=== PATIENT | female | born 1980 | race Caucasian/White ===

== ENCOUNTER 2017-01-17 16:39 | Emergency (ER) | payer OTHER ==
[2017-01-17 16:52] VITALS: BP 123/81
--- NOTE | 2017-01-17 18:30 | UC ---
FLU HPI - HPI Summary HPI Summary: SORE THROAT, EAR ACHE, FEVER, CHILLS ONSET THIS MORNING. - History of Current Complaint Chief Complaint: UCGeneralIllness Stated Complaint: SORE THROAT,ACHY,FEVER Time Seen by Provider: 01/17/17 17:02 Hx Obtained From: Patient Hx Last Menstrual Period: LAST WEEK Onset/Duration: Sudden Onset, Lasting Hours, Still Present Severity Currently: Moderate Severity Initially: Moderate Associated Signs & Symptoms: Positive: Fever, F/C, Myalgia, Sore Throat Related Hx: Possible Flu/Infectious Exposure, Smoking - Allergy/Home Medications Allergies/Adverse Reactions: Allergies Allergy/AdvReac Type Severity Reaction Status Date / Time Metronidazole [From Flagyl] Allergy Hives Verified 01/17/17 16:52 Home Medications: Home Medications Amitriptyline TAB* [Elavil TAB*] 50 mg PO BEDTIME 01/17/17 [History Confirmed ] Bcp 1 tab PO DAILY 01/17/17 [History] Fluticasone NASAL SPRAY 50MCG* [Flonase NASAL SPRAY 50MCG*] 1 spray BOTH NARES DAILY 01/17/17 [History Confirmed 01/17/17] Magnesium Oxide (mg Supplement [Magox 400-] 400 mg PO BID 01/17/17 [History Confirmed 01/17/17] Meloxicam [Mobic] 15 mg PO DAILY 01/17/17 [History Confirmed 01/17/17] Mirtazapine TAB* [Remeron TAB*] 15 mg PO BEDTIME 01/17/17 [History Confirmed ] Topiramate [Topiramate ER 50 mg cap] 50 mg PO BID 01/17/17 [History Confirmed ] ValACYclovir (*) [Valtrex 500 mg (*)] 500 mg PO DAILY 01/17/17 [History Confirmed 01/17/17] PMH/Surg Hx/FS Hx/Imm Hx Previously Healthy: Yes - Surgical History Surgical History: Yes Surgery Procedure, Year, and Place: LEFT KNEE SX 2013. 2 RIGHT SHOULDER SX 2011 , 2012 - Family History Known Family History: Negative: Respiratory Disease - Social History Occupation: Disabled - CURRENTLY IN REHAB Lives: With Family Alcohol Use: None Substance Use Type: None Smoking Status (MU): Current Every Day Smoker Type: Cigarettes Amount Used/How Often: LESS THAN 1/2 PPD Length of Time of Smoking/Using Tobacco: 15 YRS. Have You Smoked in the Last Year: Yes Cessation Counseling: Patient Advised to Stop Review of Systems Constitutional: Fever, Chills, Fatigue Skin: Negative Eyes: Negative ENT: Sore Throat, Ear Ache Respiratory: Negative Cardiovascular: Negative Gastrointestinal: Negative Genitourinary: Negative Motor: Negative Neurovascular: Negative Musculoskeletal: Myalgia Neurological: Negative Psychological: Negative All Other Systems Reviewed And Are Negative: Yes Physical Exam Triage Information Reviewed: Yes Appearance: No Pain Distress, Well-Nourished, Ill-Appearing - MILDLY Vital Signs: Initial Vital Signs Temp 97.4 F 01/17/17 16:44 Pulse 84 01/17/17 16:44 Resp 16 01/17/17 16:44 BP 123/81 01/17/17 16:44 Pulse Ox 98 01/17/17 16:44 Vital Signs Reviewed: Yes Eye Exam: Normal ENT: Positive: Hearing grossly normal, Pharynx normal, Pharyngeal erythema, Nasal congestion, TMs normal Dental Exam: Normal Neck exam: Normal Neck: Positive: Supple, Nontender, No Lymphadenopathy Respiratory Exam: Normal Respiratory: Positive: Chest non-tender, Lungs clear, Normal breath sounds, No respiratory distress, No accessory muscle use Cardiovascular Exam: Normal Cardiovascular: Positive: RRR, No Murmur, Pulses Normal Abdominal Exam: Normal Musculoskeletal Exam: Normal Neurological Exam: Normal Psychological Exam: Normal Skin Exam: Normal Flu Course/Dx - Differential Dx/Diagnosis Differential Diagnosis/HQI/PQRI: Influenza, RSV, Upper Respiratory Infection Provider Diagnoses: PHARYNGITIS; VIRAL SYNDROME Discharge - Discharge Plan Condition: Stable Disposition: HOME Patient Education Materials: Pharyngitis (ED), Viral Syndrome (ED) Forms: *Work Release Referrals: [facility] [place] PHYSICIAN REFERRAL [Outside] Non Staff,Doctor [Primary Care Provider] -
== END 2017-01-17 18:35 | disposition home or self-care (01) ==
LOC: UCCORT 16:39
DX: J02.9 Acute pharyngitis, unspecified (principal); B34.9 Viral infection, unspecified; Z88.1 Allergy status to other antibiotic agents; F17.210 Nicotine dependence, cigarettes, uncomplicated
CPT/HCPCS: 87502; 87651; 99201; G0463

== ENCOUNTER 2018-06-29 19:21 | Emergency (ER) | payer OTHER ==
[2018-06-29 19:42] VITALS: BP 119/62
[2018-06-29] MEDS ORDERED: Ondansetron ODT TAB* 4 MG PO ONE (20:18)
--- NOTE | 2018-06-29 20:41 | ED ---
- HPI Summary HPI Summary: pt presents for evaluation of her nausea. she states she is approx 4 weeks . she denies any vaginal bleeding or abdominal pain. she has a routine appt for an ultrasound to evaluate the baby. she complains of tender breasts. - History of Current Complaint Chief Complaint: UCGeneralIllness Stated Complaint: 1 MONTH PREG. VOMITING NON STOP. Time Seen by Provider: 06/29/18 19:28 Hx Obtained From: Patient Onset/Duration: Started Weeks Ago Timing: Intermittent Severity: Mild Current Severity: Mild Pain Intensity: 0 - Assessment Hx Now: Yes - Allergies/Home Medications Allergies/Adverse Reactions: Allergies Allergy/AdvReac Type Severity Reaction Status Date / Time metronidazole [From Flagyl] Allergy Intermediate Hives Verified 06/29/18 19:43 PMH/Surg Hx/FS Hx/Imm Hx Previously Healthy: Yes - Surgical History Surgery Procedure, Year, and Place: LEFT KNEE SX 2013. 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 Have You Smoked in the Last Year: Yes Review of Systems Constitutional: Negative Eyes: Negative ENT: Negative Cardiovascular: Negative Respiratory: Negative Positive: Vomiting, Nausea. Negative: Abdominal Pain, Diarrhea Genitourinary: Negative Musculoskeletal: Negative Skin: Negative Neurological: Negative Psychological: Normal All Other Systems Reviewed And Are Negative: No Physical Exam - Physical Exam Triage Information Reviewed: Yes Vital Signs Reviewed: Yes Appearance: Positive: Well-Appearing, No Pain Distress, Well-Nourished Skin: Positive: Warm, Dry Eyes: Positive: Normal, EOMI, VINCENZO ENT: Positive: Normal ENT inspection, Hearing grossly normal, Pharynx normal Neck: Positive: Supple, Nontender Respiratory/Lung Sounds: Positive: Clear to Auscultation, Breath Sounds Present Cardiovascular: Positive: Normal, RRR Abdomen Description: Positive: Nontender, Soft, Other: - gravid abdomen Musculoskeletal: Positive: Normal Neurological: Positive: Normal, Sensory/Motor Intact, Alert, Oriented to Person Place, Time Psychiatric: Positive: Normal AVPU Assessment: Alert Diagnostics - Vital Signs Vital Signs Temp Pulse Resp BP Pulse Ox 06/29/18 19:40 98.8 F 85 15 119/62 98 - Laboratory Lab Results: Lab Results 06/29/18 Range/Units 20:19 POC Urine Color Yellow POC Urine Clarity Clear POC Urine pH 6.0 (5-9) POC Ur Specif [place] 1.020 (1.010-1.030) POC Urine Protein Negative (Negative) POC Ur Glucose (UA) Negative (Negative) POC Urine Ketones Negative (Negative) POC Urine Blood Negative (Negative) POC Urine Nitrite Negative (Negative) POC Urine Bilirubin Negative (Negative) POC Urine Urobilinogen 0.2 (Negative) POC U Leukocyte Esteras Negative (Negative) Lab Statement: Any lab studies that have been ordered have been reviewed, and results considered in the medical decision making process. Course/Dx - Course Course Of Treatment: pt given zofran. she is feeling better. her urine shows no evidence of uti. I am not concerned about an ectopic. will d/c with rx for zofran and give work excuse. - Diagnoses Provider Diagnoses: Nausea/vomiting in Discharge - Sign-Out/Discharge Documenting (check all that apply): Patient Departure All imaging exams completed and their final reports reviewed: No Studies - Discharge Plan Condition: Stable Disposition: HOME Prescriptions: Ondansetron ODT TAB* [Zofran 4 MG Odt TAB*] 4 mg PO Q8H PRN #30 tab.odt MDD 3 PRN Reason: Nausea Patient Education Materials: Nausea and Vomiting in (ED) Forms: *Work Release Referrals: No Primary Care Phys,NOPCP [Primary Care Provider] - [facility] [Provider Group] Additional Instructions: please keep your appt with your ob doctor. take the zofran for nausea/ vomiting. return if worse or any new symptoms. take your vitamins. - Billing Disposition and Condition Condition: STABLE Disposition: Home
== END 2018-06-29 20:45 | disposition home or self-care (01) ==
LOC: UCCORT 19:21
DX: O21.9 Vomiting of pregnancy, unspecified (principal); F17.210 Nicotine dependence, cigarettes, uncomplicated; Z3A.01 Less than 8 weeks gestation of pregnancy; Z88.1 Allergy status to other antibiotic agents
CPT/HCPCS: 81003; 99212; A9270-GY; G0463

== ENCOUNTER 2018-07-27 10:56 | Emergency (ER) | payer OTHER ==
[2018-07-27 11:16] VITALS: BP 107/79
[2018-07-27] MEDS ORDERED: Ondansetron ODT TAB* 4 MG PO ONE (11:56)
--- NOTE | 2018-07-27 12:08 | UC ---
Throat Pain/Nasal Brent HPI - HPI Summary HPI Summary: nausea is persistant, she is 11 weeks and provider gave Zofran PO instead of OTD and she is throwing them up. sore thraot, swollen glands and sinus pressure - History of Current Complaint Chief Complaint: UCGeneralIllness Stated Complaint: ST/EAR ACHE/NEAUSEA (PREG) Time Seen by Provider: 07/27/18 11:48 Hx Obtained From: Patient Hx Last Menstrual Period: 05/08/18 ?: No Onset/Duration: Sudden Onset, Lasting Days Severity: Moderate Pain Intensity: 0 Associated Signs & Symptoms: Positive: Dysphagia, Sinus Discomfort - Allergies/Home Medications Allergies/Adverse Reactions: Allergies Allergy/AdvReac Type Severity Reaction Status Date / Time metronidazole [From Flagyl] Allergy Intermediate Hives Verified 07/27/18 11:10 Home Medications: Home Medications Docusate CAP* [Colace Cap*] 100 mg PO DAILY 07/27/18 [History Confirmed 07/27/18 ] [id number]/Iron Fum/Folic/Docusate [ 19] 1 tab PO DAILY 07/27/18 [History Confirmed 07/27/18] Polyethylene Glycol 3350* [Miralax*] 17 gm PO DAILY 07/27/18 [History Confirmed 07/27/18] PMH/Surg Hx/FS Hx/Imm Hx Previously Healthy: Yes - Surgical History Surgical History: Yes Surgery Procedure, Year, and Place: LEFT KNEE SX 2013. 2 RIGHT SHOULDER SX 2011 , 2013. LEFT SHOULDER SX - Family History Known Family History: Negative: Respiratory Disease - Social History Alcohol Use: None Substance Use Type: None Smoking Status (MU): Light Every Day Tobacco Smoker Type: Cigarettes Amount Used/How Often: 1 cig daily Length of Time of Smoking/Using Tobacco: 15 YRS. Have You Smoked in the Last Year: Yes Review of Systems All Other Systems Reviewed And Are Negative: Yes Constitutional: Positive: Negative Skin: Positive: Negative Eyes: Positive: Negative ENT: Positive: Sore Throat, Ear Ache, Nasal Discharge Respiratory: Positive: Cough Cardiovascular: Positive: Negative Gastrointestinal: Positive: Negative Genitourinary: Positive: Negative Motor: Positive: Negative Neurovascular: Positive: Negative Musculoskeletal: Positive: Negative Neurological: Positive: Negative Psychological: Positive: Negative Is Patient Immunocompromised?: No Physical Exam Triage Information Reviewed: Yes Appearance: Well-Nourished, Ill-Appearing, Pain Distress Vital Signs: Initial Vital Signs Temp 97.8 F 07/27/18 11:11 Pulse 71 07/27/18 11:11 Resp 17 07/27/18 11:11 BP 107/79 07/27/18 11:11 Pulse Ox 99 07/27/18 11:11 Vital Signs Reviewed: Yes Eye Exam: Normal ENT: Positive: Pharyngeal erythema, TM bulging Dental Exam: Normal Neck: Positive: Enlarged Nodes @ - bilateral cervical Respiratory Exam: Normal Respiratory: Positive: Chest non-tender, Lungs clear, Normal breath sounds Cardiovascular Exam: Normal Cardiovascular: Positive: RRR, No Murmur, Pulses Normal Abdominal Exam: Normal Abdomen Description: Positive: Nontender, No Organomegaly, Soft Bowel Sounds: Positive: Present Musculoskeletal Exam: Normal Musculoskeletal: Positive: Strength Intact, ROM Intact, No Edema Neurological Exam: Normal Neurological: Positive: Alert Psychological Exam: Normal Skin Exam: Normal Throat Pain/Nasal Course/Dx - Course Course Of Treatment: hx obtained, exam performed ,meds reviewed, rapid strep positive, - Differential Dx/Diagnosis Differential Diagnosis/HQI/PQRI: Otitis Media, Pharyngitis, Sinusitis, URI Provider Diagnosis: Nausea, Strep pharyngitis Discharge - Sign-Out/Discharge Documenting (check all that apply): Patient Departure All imaging exams completed and their final reports reviewed: No Studies - Discharge Plan Condition: Stable Disposition: HOME Prescriptions: Amoxicillin PO (*) [Amoxicillin 875 MG (*)] 875 mg PO BID #20 tab Ondansetron ODT TAB* [Zofran 4 MG Odt TAB*] 4 mg PO Q8H PRN #6 tab.odt PRN Reason: Nausea Patient Education Materials: Strep Throat (DC) Referrals: Jonas ACOSTA,Clark Gustafson [Primary Care Provider] - Additional Instructions: 1. take the medication as prescribed. 2. Increase fluid intake and get plenty of rest 3. FOllow up as needed. - Billing Disposition and Condition Condition: STABLE Disposition: Home
== END 2018-07-27 12:17 | disposition home or self-care (01) ==
LOC: UCCORT 10:56
DX: O21.0 Mild hyperemesis gravidarum (principal); Z3A.11 11 weeks gestation of pregnancy; J02.0 Streptococcal pharyngitis; B95.0 Streptococcus, group A, as the cause of diseases classified elsewhere; O26.891 Other specified pregnancy related conditions, first trimester; O99.331 Smoking (tobacco) complicating pregnancy, first trimester; F17.210 Nicotine dependence, cigarettes, uncomplicated; Z88.1 Allergy status to other antibiotic agents
CPT/HCPCS: 87651; 99212; A9270-GY; G0463

== ENCOUNTER 2018-11-11 08:58 | Emergency (ER) | payer OTHER ==
[2018-11-11 09:22] VITALS: BP 102/66
[2018-11-11 09:34] LABS: Influenza A Molecular POSITIVE (Negative)
--- NOTE | 2018-11-11 09:52 | UC ---
Throat Pain/Nasal Brent HPI - HPI Summary HPI Summary: Pt is 2nd trimester presents with 24 hours body aches, fatigue, congestion. mild intermittent cough - not productive Tactile temp. No SOB. Good , active activity. No rash. no cp, abd pain. No n/v/d. pt's medications reviewed this visit - History of Current Complaint Chief Complaint: UCGeneralIllness Stated Complaint: SORE THROAT,CONGESTION Time Seen by Provider: 11/11/18 09:35 Hx Obtained From: Patient Hx Last Menstrual Period: 05/08/18 Onset/Duration: Sudden Onset Severity: Mild Pain Intensity: 4 Pain Scale Used: 0-10 Numeric - Allergies/Home Medications Allergies/Adverse Reactions: Allergies Allergy/AdvReac Type Severity Reaction Status Date / Time metronidazole [From Flagyl] Allergy Intermediate Hives Verified 11/11/18 09:18 Home Medications: Home Medications Ranitidine TAB (NF) [Zantac TAB (NF)] 300 mg PO DAILY 11/11/18 [History Confirmed 11/11/18] PMH/Surg Hx/FS Hx/Imm Hx Previously Healthy: Yes - Surgical History Surgical History: Yes Surgery Procedure, Year, and Place: LEFT KNEE SX 2013. 2 RIGHT SHOULDER SX 2011 , 2013. LEFT SHOULDER SX - Family History Known Family History: Negative: Respiratory Disease - Social History Occupation: Employed Full-time Lives: With Family Alcohol Use: None Substance Use Type: None Smoking Status (MU): Former Smoker Type: Cigarettes Amount Used/How Often: 1 cig daily Length of Time of Smoking/Using Tobacco: 15 YRS. Have You Smoked in the Last Year: Yes Review of Systems All Other Systems Reviewed And Are Negative: Yes Constitutional: Positive: Fever, Fatigue Eyes: Positive: Negative ENT: Positive: Negative Respiratory: Positive: Cough. Negative: Shortness Of Breath Cardiovascular: Positive: Negative Neurovascular: Positive: Negative Musculoskeletal: Positive: Negative Neurological: Positive: Negative Psychological: Positive: Negative Is Patient Immunocompromised?: No Physical Exam - Summary Physical Exam Summary: Vital Signs Reviewed: Yes A+Ox3, no distress Eyes: Conjunctiva Clear, VINCENZO. EOM intact and full ENT: Hearing grossly normal TM x 2 clear, turbinates inflammed and boggy, + PND mmoist, uvula midline, no exudate, no erythema Neck: Positive: Supple Respiratory: Positive: No respiratory distress, No accessory muscle use + CTA throughout no w/r, intermittent cough. speak in full, easy sentences Cardiovascular: RRR nl s1, s2 no m/r CBT <2 sec abd soft + BS nt/nd no guarding, no distension, gravid Musculoskeletal Exam: VILLAREAL x 4 without difficulty Strength Intact, ROM Intact Neurological: Positive: Alert, + sensation throughout Psychological: Positive: Normal Response To Family Skin: Positive: no rash, no ecchymosis Triage Information Reviewed: Yes Vital Signs: Initial Vital Signs Temp 98 F 11/11/18 09:18 Pulse 90 11/11/18 09:18 Resp 16 11/11/18 09:18 BP 102/66 11/11/18 09:18 Pulse Ox 98 11/11/18 09:18 Throat Pain/Nasal Course/Dx - Course Course Of Treatment: Pt presents with progressive congestion, body aches, and fatigue pt 20+ weeks VSS On exam, Pt with congestion and cough + influenza hydrate APAP rest humidified air Tamiflu prescribed - will check with ob prior to starting - Differential Dx/Diagnosis Provider Diagnosis: Influenza Discharge - Sign-Out/Discharge Documenting (check all that apply): Patient Departure All imaging exams completed and their final reports reviewed: No Studies - Discharge Plan Condition: Stable Disposition: HOME Prescriptions: Oseltamivir Phosphate [Tamiflu] 75 mg PO BID #10 capsule Patient Education Materials: Influenza (ED) Forms: *Gen. Provider Communication, *Work Release Referrals: Jonas ACOSTA,Clark Gustafson [Primary Care Provider] - Additional Instructions: - Stay well hydrated. Drink plenty of non-alcoholic, non-caffinated beverages. - Okay to to take Tylenol every 6 hours for pain or fever. Take with food. Do NOT take for more than 4-5 days. - These infections are spread by secretions - do NOT share eating or drinking utensils - clean items you share with other people such as cell phones, computer mouse, TV remote, computer tablets,etc. Once you start to feel better, change your toothbrush and your pillowcase. - get plenty of restful sleep - humidify the air in the room where you sleep - boil water, run a hot steam shower, vaporizer, cups of water by heat register - As discussed - you have been prescribed Tamiflu - it is recommended you discuss taking this medication with your OB specialist before starting - contact your doctor or go to the emergency department with any questions or concerns - Billing Disposition and Condition Condition: STABLE Disposition: Home
== END 2018-11-11 10:00 | disposition home or self-care (01) ==
LOC: UCCORT 08:58
DX: J11.1 Influenza due to unidentified influenza virus with other respiratory manifestations (principal); Z87.891 Personal history of nicotine dependence; Z88.1 Allergy status to other antibiotic agents
CPT/HCPCS: 87651; 99212; G0463

== ENCOUNTER 2019-06-16 08:31 | Emergency (ER) | payer OTHER ==
[2019-06-16 08:56] VITALS: BP 117/83
--- NOTE | 2019-06-16 09:06 | UC ---
Throat Pain/Nasal Brent HPI - HPI Summary HPI Summary: sore throat x 5 days pain is 3 out of 10, dry cough , chest congestion , runny nose, no fever, + body aches - History of Current Complaint Chief Complaint: UCGeneralIllness Stated Complaint: SORE THROAT EARS CHEST COUGH Time Seen by Provider: 06/16/19 08:48 Hx Obtained From: Patient Hx Last Menstrual Period: 05/08/18 ?: No Onset/Duration: Gradual Onset, Lasting Days - 5, Still Present Severity: Moderate Pain Intensity: 3 Cough: Nonproductive Associated Signs & Symptoms: Positive: Nasal Discharge. Negative: Wheezing, Sinus Discomfort, Fever, Vomiting, Rash - Allergies/Home Medications Allergies/Adverse Reactions: Allergies Allergy/AdvReac Type Severity Reaction Status Date / Time metronidazole [From Flagyl] Allergy Intermediate Hives Verified 06/16/19 08:50 Home Medications: Home Medications Escitalopram * [Lexapro *] 10 mg PO DAILY 06/16/19 [History Confirmed 06/16/19] Labetalol TAB* [Trandate TAB*] 100 mg PO BID 06/16/19 [History Confirmed ] Losartan Potassium [Cozaar] 50 mg PO DAILY 06/16/19 [History Confirmed 06/16/19] PMH/Surg Hx/FS Hx/Imm Hx Previously Healthy: Yes - Surgical History Surgical History: Yes Surgery Procedure, Year, and Place: LEFT KNEE SX 2013. 2 RIGHT SHOULDER SX 2011 , 2012. LEFT SHOULDER SX - Family History Known Family History: Negative: Respiratory Disease - Social History Alcohol Use: Weekly Alcohol Amount: 1 glass of wine per week Substance Use Type: None Smoking Status (MU): Light Every Day Tobacco Smoker Type: Cigarettes Amount Used/How Often: 2 cig daily Length of Time of Smoking/Using Tobacco: 15 YRS. Have You Smoked in the Last Year: Yes Review of Systems All Other Systems Reviewed And Are Negative: Yes Constitutional: Positive: Chills, Fatigue Skin: Positive: Negative Eyes: Positive: Negative ENT: Positive: Sore Throat, Nasal Discharge. Negative: Ear Ache, Sinus Congestion, Sinus Pain/Tenderness Respiratory: Positive: Cough Cardiovascular: Positive: Negative Is Patient Immunocompromised?: No Physical Exam Triage Information Reviewed: Yes Appearance: Well-Appearing, No Pain Distress, Well-Nourished Vital Signs: Initial Vital Signs Temp 98.2 F 06/16/19 08:51 Pulse 78 06/16/19 08:51 Resp 15 06/16/19 08:51 BP 117/83 06/16/19 08:51 Pulse Ox 98 06/16/19 08:51 Vital Signs Reviewed: Yes Eye Exam: Normal ENT: Positive: Normal ENT inspection, Hearing grossly normal, Pharynx normal, TMs normal. Negative: TM bulging, TM dull, TM red, Tonsillar swelling, Tonsillar exudate Neck: Positive: Supple, Nontender, No Lymphadenopathy Respiratory: Positive: Chest non-tender, Lungs clear, Normal breath sounds Cardiovascular: Positive: RRR, No Murmur, Pulses Normal Skin Exam: Normal Throat Pain/Nasal Course/Dx - Differential Dx/Diagnosis Provider Diagnosis: Pharyngitis Discharge ED - Sign-Out/Discharge Documenting (check all that apply): Patient Departure All imaging exams completed and their final reports reviewed: No Studies - Discharge Plan Condition: Stable Disposition: HOME Patient Education Materials: Pharyngitis (ED) Referrals: Jonas ACOSTA,Clark Gustafson [Primary Care Provider] - If Needed - Billing Disposition and Condition Condition: STABLE Disposition: Home
== END 2019-06-16 09:16 | disposition home or self-care (01) ==
LOC: UCCORT 08:31
DX: J02.9 Acute pharyngitis, unspecified (principal); R09.89 Other specified symptoms and signs involving the circulatory and respiratory systems; R53.83 Other fatigue; F17.210 Nicotine dependence, cigarettes, uncomplicated; Z88.1 Allergy status to other antibiotic agents
CPT/HCPCS: 87651; 99211; G0463

== ENCOUNTER 2019-07-13 12:35 | Emergency (ER) | payer OTHER ==
[2019-07-13 13:13] VITALS: BP 133/79
--- NOTE | 2019-07-13 13:25 | UC ---
Throat Pain/Nasal Brent HPI - HPI Summary HPI Summary: Patient's a 32 yo female presents to urgent care with progressive head congestion and left ear pain and sinus pressure postnasal drip. Patient also with cough but states it's nonproductive. Patient denies fevers but states she has had chills and fatigue. Patient child was evaluated earlier this week was diagnosed with the ear infection. Patient has not taken any [id number] medication. Patient states she isn't sleeping well because the congestion and cough. Patient denies any abdominal pain. No nausea vomiting decreased appetite. Patient did not get the flu vaccine this year. Patient is and breast-feeding. Patient's medications reviewed's visit. States she is not . - History of Current Complaint Chief Complaint: UCGeneralIllness Stated Complaint: COUGH,ST,SINUS COMPLAINT Time Seen by Provider: 07/13/19 13:24 Hx Obtained From: Patient Hx Last Menstrual Period: 05/08/18 ?: No Pain Intensity: 3 - Allergies/Home Medications Allergies/Adverse Reactions: Allergies Allergy/AdvReac Type Severity Reaction Status Date / Time metronidazole [From Flagyl] Allergy Intermediate Hives Verified 07/13/19 13:13 PMH/Surg Hx/FS Hx/Imm Hx Previously Healthy: Yes - Surgical History Surgical History: Yes Surgery Procedure, Year, and Place: LEFT KNEE SX 2013. 2 RIGHT SHOULDER SX 2011 , 2013. LEFT SHOULDER SX - Family History Known Family History: Positive: Non-Contributory Negative: Respiratory Disease - Social History Occupation: Employed Full-time - housekeeping Lives: With Family Alcohol Use: Weekly Alcohol Amount: 1 glass of wine per week Substance Use Type: None Smoking Status (MU): Former Smoker Type: Cigarettes Amount Used/How Often: 2 cig daily Length of Time of Smoking/Using Tobacco: 15 YRS. Have You Smoked in the Last Year: Yes When Did the Patient Quit Smoking/Using Tobacco: 06/2019 Review of Systems All Other Systems Reviewed And Are Negative: Yes Constitutional: Positive: Fatigue. Negative: Fever Eyes: Positive: Negative ENT: Positive: Ear Ache, Nasal Discharge, Sinus Congestion, Sinus Pain/ Tenderness Respiratory: Positive: Cough Cardiovascular: Positive: Negative Gastrointestinal: Positive: Negative Genitourinary: Positive: Negative Physical Exam - Summary Physical Exam Summary: Vital Signs Reviewed: Yes A+Ox3, congested Eyes: Conjunctiva Clear, VINCENZO. EOM intact and full ENT: Hearing grossly normal fluid left ear turbinates, right TM wnl, inflammed and boggy, thick pnd, secreations, mmoist, uvula midline, mild exudate on left, no erythema Neck: Positive: Supple Respiratory: Positive: No respiratory distress, No accessory muscle use + CTA throughout no w/r, intermittent cough Cardiovascular: RRR nl s1, s2 no m/r CBT <2 sec abd soft + BS nt/nd no guarding, no distension Musculoskeletal Exam: VILLAREAL x 4 without difficulty Strength Intact, ROM Intact Neurological: Positive: Alert, + sensation throughout Psychological: Positive: Normal Response To examiner Skin: Positive: no rash, no ecchymosis Triage Information Reviewed: Yes Vital Signs: Initial Vital Signs Temp 97.8 F 07/13/19 13:10 Pulse 65 07/13/19 13:10 Resp 16 07/13/19 13:10 BP 133/79 07/13/19 13:10 Pulse Ox 97 07/13/19 13:10 Throat Pain/Nasal Course/Dx - Course Course Of Treatment: Patient's a 39-year-old female presents with progressive congestion sore throat and ear pain for the last several days. Patient's pending arrival with slightly diagnosed with otitis. Patient also with a cough. On exam vital signs are stable. Patient congested. Patient with otitis media early on the right as well as examples rhinosinusitis. Patient does have thick postnasal discharge. Patient also had exudate on the left posterior oropharynx. We'll do a rapid strep. Anticipate antibiotics. Hydrate. Motrin and Tylenol. Secretion precautions. Patient also given a forward. Patient comfortable in agreement with plan. - Differential Dx/Diagnosis Provider Diagnosis: Rhinosinusitis Discharge ED - Sign-Out/Discharge Documenting (check all that apply): Patient Departure All imaging exams completed and their final reports reviewed: No Studies - Discharge Plan Condition: Stable Disposition: HOME Prescriptions: Amoxicillin/Clavulanate TAB* [Augmentin TAB 875*] 875 mg PO BID #20 tab Fluticasone NASAL SPRAY 50MCG* [Flonase NASAL SPRAY 50MCG*] 2 spray BOTH NARES DAILY #1 btl Patient Education Materials: Ear Infection (ED), Rhinosinusitis (ED) Forms: *Work Release Referrals: Jonas ACOSTA,Clark Gustafson [Primary Care Provider] - Additional Instructions: - Stay well hydrated. Drink plenty of non-alcoholic, non-caffinated beverages. - Alternate ibuprofen (Advil, Motrin) 600mg and Tylenol every 3 hours for pain or fever. Take with food. Do NOT take for more than 4-5 days. - These infections are spread by secretions - do NOT share eating or drinking utensils - clean items you share with other people such as cell phones, computer mouse, TV remote, computer tablets,etc. Once you have been antibiotics for 2 days, change your toothbrush and your pillowcase. - get plenty of restful sleep - humidify the air in the room where you sleep - boil water, run a hot steam shower, vaporizer, cups of water by heat register - okay to take over the counter decongestant and cough medication - use nasal spray as prescribed - Take antibiotics as prescribed until gone. - contact your doctor or return with questions or concerns - Billing Disposition and Condition Condition: STABLE Disposition: Home
== END 2019-07-13 13:55 | disposition home or self-care (01) ==
LOC: UCCORT 12:35
DX: J32.9 Chronic sinusitis, unspecified (principal); H92.02 Otalgia, left ear; R53.83 Other fatigue; Z88.1 Allergy status to other antibiotic agents; Z87.891 Personal history of nicotine dependence
CPT/HCPCS: 87651; 99212; G0463

== ENCOUNTER 2019-08-22 13:16 | Emergency (ER) | payer OTHER ==
[2019-08-22 13:47] VITALS: BP 110/75
--- NOTE | 2019-08-22 14:23 | UC ---
Ear Complaint HPI - HPI Summary HPI Summary: 2 days of R ear pain w/ no other symptoms. - History of Current Complaint Chief Complaint: UCEar Stated Complaint: RT EAR COMPLAINT Time Seen by Provider: 08/22/19 14:08 Hx Obtained From: Patient Hx Last Menstrual Period: 08/12/19 Pain Intensity: 4 Pain Scale Used: 0-10 Numeric Aggravating Factors: Nothing Alleviating Factors: Nothing - Allergies/Home Medications Allergies/Adverse Reactions: Allergies Allergy/AdvReac Type Severity Reaction Status Date / Time metronidazole [From Flagyl] Allergy Intermediate Hives Verified 08/22/19 13:37 PMH/Surg Hx/FS Hx/Imm Hx Previously Healthy: Yes Cardiovascular History: Hypertension - Surgical History Surgical History: Yes Surgery Procedure, Year, and Place: LEFT KNEE SX 2013. 2 RIGHT SHOULDER SX 2011 , 2012. LEFT SHOULDER SX - Family History Known Family History: Positive: Non-Contributory Negative: Respiratory Disease - Social History Alcohol Use: Weekly Alcohol Amount: 1 glass of wine per week Substance Use Type: None Smoking Status (MU): Former Smoker Type: Cigarettes Amount Used/How Often: 2 cig daily Length of Time of Smoking/Using Tobacco: 15 YRS. Have You Smoked in the Last Year: Yes When Did the Patient Quit Smoking/Using Tobacco: 06/2019 Review of Systems All Other Systems Reviewed And Are Negative: Yes Constitutional: Negative: Fever Skin: Negative: Rash ENT: Positive: Ear Ache. Negative: Sore Throat Respiratory: Negative: Cough Physical Exam Triage Information Reviewed: Yes Appearance: Well-Appearing Vital Signs: Initial Vital Signs Temp 97.5 F 08/22/19 13:38 Pulse 60 08/22/19 13:38 Resp 18 08/22/19 13:38 BP 110/75 08/22/19 13:38 Pulse Ox 99 08/22/19 13:38 Vital Signs Reviewed: Yes Eyes: Positive: Conjunctiva Clear ENT: Positive: Pharynx normal, TMs normal - bilat, Uvula midline, Other - R canal has a small pimple Ear Complaint Course/Dx - Course Course Of Treatment: Pimple in R canal w/ no other symptoms. Tx is expectant mngmt. No intervention at this time. - Differential Dx/Diagnosis Differential Diagnosis/HQI/PQRI: Cerumen Impaction, URI, Other Provider Diagnosis: Ear pain Discharge ED - Sign-Out/Discharge Documenting (check all that apply): Patient Departure All imaging exams completed and their final reports reviewed: No Studies - Discharge Plan Condition: Good Disposition: HOME Patient Education Materials: Earache (ED) Referrals: Jonas ACOSTA,Clark Gustafson [Primary Care Provider] - Additional Instructions: If worsening please return. - Billing Disposition and Condition Condition: GOOD Disposition: Home
== END 2019-08-22 14:37 | disposition home or self-care (01) ==
LOC: UCCORT 13:16
DX: H92.01 Otalgia, right ear (principal); I10 Essential (primary) hypertension; Z88.1 Allergy status to other antibiotic agents; Z87.891 Personal history of nicotine dependence
CPT/HCPCS: 99211; G0463

== ENCOUNTER 2019-10-23 12:39 | Emergency (ER) | payer OTHER ==
[2019-10-23 14:01] VITALS: BP 112/66
--- NOTE | 2019-10-23 14:17 | UC ---
Respiratory Complaint HPI - HPI Summary HPI Summary: 39 y/o female with uri sx . Congestion, sore throat, fatigue, cold chills since last night. Daughter dx'd with ear infection here yesterday. Pt is about 4-5 weeks , which she does not wish to carry to term. exertion worsens sx. did have strep throat a month or 2 ago and it feels just like that. Also having some right ear discomfort. [place] like last night her throat felt like she was swallowing razor blades . - History of Current Complaint Chief Complaint: UCGeneralIllness Stated Complaint: SORE THROAT, CONGESTION Time Seen by Provider: 10/23/19 14:10 Hx Obtained From: Patient Hx Last Menstrual Period: 09/10/19 Onset/Duration: Gradual Onset Pain Intensity: 0 - Allergies/Home Medications Allergies/Adverse Reactions: Allergies Allergy/AdvReac Type Severity Reaction Status Date / Time metronidazole [From Flagyl] Allergy Intermediate Hives Verified 10/23/19 13:57 Home Medications: Home Medications Escitalopram * [Lexapro *] 10 mg PO DAILY 06/16/19 [History Confirmed 10/23/19] Labetalol TAB* [Trandate TAB*] 100 mg PO BID 06/16/19 [History Confirmed ] Losartan Potassium [Cozaar] 50 mg PO DAILY 06/16/19 [History Confirmed 10/23/19] Amoxicillin PO (*) [Amoxicillin 875 MG (*)] 875 mg PO BID #20 tab 10/23/19 [Rx] PMH/Surg Hx/FS Hx/Imm Hx Previously Healthy: Yes Cardiovascular History: Hypertension Psychological History: Anxiety - Surgical History Surgical History: Yes Surgery Procedure, Year, and Place: LEFT KNEE SX 2013. 2 RIGHT SHOULDER SX 2011 , 2013. LEFT SHOULDER SX - Family History Known Family History: Positive: Non-Contributory Negative: Respiratory Disease - Social History Occupation: Employed Full-time Alcohol Use: Weekly Alcohol Amount: 1 glass of wine per week Substance Use Type: None Smoking Status (MU): Former Smoker Type: Cigarettes Amount Used/How Often: 2 cig daily Length of Time of Smoking/Using Tobacco: 15 YRS. Have You Smoked in the Last Year: Yes When Did the Patient Quit Smoking/Using Tobacco: 06/2019 Review of Systems All Other Systems Reviewed And Are Negative: Yes Constitutional: Positive: Fatigue ENT: Positive: Sore Throat, Ear Ache, Nasal Discharge, Sinus Congestion Is Patient Immunocompromised?: No Physical Exam Triage Information Reviewed: Yes Appearance: No Pain Distress Vital Signs: Initial Vital Signs Temp 97.4 F 10/23/19 13:57 Pulse 62 10/23/19 13:57 Resp 15 10/23/19 13:57 BP 112/66 10/23/19 13:57 Pulse Ox 100 10/23/19 13:57 Vital Signs Reviewed: Yes Eye Exam: Normal ENT Exam: Normal ENT: Positive: Pharyngeal erythema, Nasal congestion, Nasal drainage, TM bulging , TM dull, TM red - right Dental Exam: Normal Neck exam: Normal Neck: Positive: 1 Respiratory Exam: Normal Cardiovascular Exam: Normal Musculoskeletal Exam: Normal Neurological Exam: Normal Psychological Exam: Normal Skin Exam: Normal Respiratory Course/Dx - Course Course Of Treatment: Patient's daughter at home currently with a double ear infection. Patient with sore throat as well as right ear redness. Treat with antibiotics at this time. Patient aware and agreeable to plan as well as the side effects of the antibiotics. If symptoms worsen go to emergency room. - Differential Dx/Diagnosis Differential Diagnosis/HQI/PQRI: Bronchitis, Laryngitis, Lower Resp Infection, Sinusitis Provider Diagnosis: AOM (acute otitis media), URI (upper respiratory infection) Discharge ED - Sign-Out/Discharge Documenting (check all that apply): Patient Departure All imaging exams completed and their final reports reviewed: No Studies - Discharge Plan Condition: Good Disposition: HOME Prescriptions: Amoxicillin PO (*) [Amoxicillin 875 MG (*)] 875 mg PO BID #20 tab Patient Education Materials: Ear Infection (ED) Referrals: Jonas ACOSTA,Clark Gustafson [Primary Care Provider] - 3 Days - Billing Disposition and Condition Condition: GOOD Disposition: Home
== END 2019-10-23 14:22 | disposition home or self-care (01) ==
LOC: UCCORT 12:39
DX: H66.91 Otitis media, unspecified, right ear (principal); J06.9 Acute upper respiratory infection, unspecified; I10 Essential (primary) hypertension; F41.9 Anxiety disorder, unspecified; Z87.891 Personal history of nicotine dependence; Z79.899 Other long term (current) drug therapy; Z88.1 Allergy status to other antibiotic agents
CPT/HCPCS: 99212; G0463